=== PATIENT | female | born 1965 | race Caucasian/White ===

== ENCOUNTER 2017-08-06 21:14 | Emergency (ER) | payer OTHER ==
[~2017-08-06] VITALS: Ht 172.7 cm; Wt 72.6 kg
[2017-08-06 21:42] LABS: BASOPHILS ABSOLUTE AUTO 0.04 K/mm3 (0.00-0.23); BASOPHILS PERCENT AUTO 1 % (0-2); EOSINOPHILS PERCENT AUTO 2 % (0-6); Hematocrit 30.5 % (33.0-51.0); IMMATURE GRAN ABSOLUTE AUTO 0.02 K/mm3 (0.00-0.10); IMMATURE GRAN PERCENT AUTO 0 % (0-1); LYMPHOCYTES ABSOLUTE AUTO 2.05 K/mm3 (0.84-5.20); LYMPHOCYTES PERCENT AUTO 39 % (21-46); MONOCYTES ABSOLUTE AUTO 0.65 K/mm3 (0.16-1.47); MONOCYTES PERCENT AUTO 12 % (4-13); Mean Corpuscular HGB 30.8 pg (26.0-34.0); Mean Corpuscular HGB Conc 32.8 g/dL (31.5-36.5); Mean Corpuscular Volume 94 fL (80-100); Mean Platelet Volume 8.5 fL (9.1-12.4); NEUTROPHILS ABSOLUTE AUTO 2.47 K/mm3 (1.96-9.15); NEUTROPHILS PERCENT AUTO 46 % (41-73); Platelet Count 252 K/mm3 (150-400); RDW Coefficient Variation 13.2 % (11.7-14.2); RDW Standard Deviation 45.8 fL (35.1-46.3); Red Blood Cell Count 3.25 M/mm3 (3.80-5.20); White Blood Cell Count 5.33 K/mm3 (4.00-11.30)
[2017-08-06 21:44] LABS: Source, Urine Clean Catch
[2017-08-06 21:49] LABS: Appearance, Urine Hazy (Clear); Bilirubin, Urine Neg (Neg); Blood, Urine 1+ (Neg); Color, Urine Yellow (P-Yellow); Glucose Qualitative, Urine Neg (Neg); Ketones, Urine Neg (Neg); Leukocyte Esterase, Urine 3+ (Neg); Nitrite, Urine Neg (Neg); Protein, Urine Neg (Neg); Specific Gravity, Urine 1.005 (1.003-1.022); Urobilinogen, Urine NORM (Normal)
[2017-08-06 21:57] LABS: Bacteria Mod /hpf; Squamous Epithelial Cells Mod /hpf (Few); White Blood Cells, Urine 50-100 /hpf (0-5)
[2017-08-06 22:00] LABS: U Amphetamine Screen Not Detected; U Barbituate Screen Not Detected; U Benzodiazapine Screen Not Detected; U Buprenorphine Screen Not Detected; U Cannabinoids Screen Not Detected; U Cocaine Screen Not Detected; U Methadone Screen Not Detected; U Methamphetamine Screen Not Detected; U Opiates Screen Not Detected; U Oxycodone Screen Not Detected; U Phencyclidine Screen Not Detected; U Propoxyphene Screen Not Detected
[2017-08-06 22:02] LABS: Alanine Aminotransfer (ALT/SGP 18 U/L (12-78); Albumin/Globulin Ratio 1.2 (0.8-1.8); Alk Phos 71 U/L (50-136); Anion Gap 7 mmol/L (6-16); Aspartate Aminotrans (AST/SGOT 17 U/L (12-37); Bilirubin, Total 0.2 mg/dL (0.1-1.0); Blood Urea Nitrogen 8 mg/dL (8-24); CO2, Blood 27 mmol/L (21-32); Calcium, Blood 8.6 mg/dL (8.5-10.1); Chloride, Blood 107 mmol/L (98-108); Ethanol (Alcohol), Blood, Med <3 mg/dL; Globulin, Blood 3.3 g/dL (2.2-4.0); Glomerular Filtration Rate >60 (60-); Glucose, Blood 57 mg/dL (70-99); Potassium, Blood 3.8 mmol/L (3.5-5.5); Sodium, Blood 141 mmol/L (136-145); Total Protein, Blood 7.3 g/dL (6.4-8.2); Troponin I <0.015 ng/mL (0.000-0.040)
[2017-08-06] MEDS ORDERED: IBUP800 (22:41)
[2017-08-06] MEDS ORDERED: IBUP800 PO (22:42)
[2017-08-06] MEDS ORDERED: PARO10 PO (22:46)
[2017-08-06] MEDS ORDERED: GABA100 PO (22:46)
[2017-08-06] MEDS ORDERED: Hydroxyzine HCl50 MG PO (22:47)
[2017-08-06] MEDS ORDERED: CLON.2 PO (22:48)
[2017-08-06] MEDS ORDERED: Desyrel50 MG PO (23:20)
[2017-08-06] MEDS ORDERED: Bactrim Ds Tab1 EACH PO (23:20)
[2017-08-07] MEDS ORDERED: INDERAL XL120 MG PO ×2 (20:59→21:27)
== END 2017-08-06 23:39 | disposition home or self-care (01) ==
LOC: ER 21:14
PROVIDERS: Emergency Medicine
DX: F41.9 Anxiety disorder, unspecified (principal); F10.11 Alcohol abuse, in remission; Y90.0 Blood alcohol level of less than 20 mg/100 ml; N39.0 Urinary tract infection, site not specified; Z79.899 Other long term (current) drug therapy; Z79.2 Long term (current) use of antibiotics
CPT/HCPCS: 71046; 80053; 81001; 84484; 85025; 87086; 93005; 93010; 99283-25; G0480

== ENCOUNTER 2017-08-07 20:44 | Emergency (ER) | payer OTHER ==
[~2017-08-07] VITALS: Ht 157.5 cm; Wt 60.8 kg
[~2017-08-07 20:44] MED LIST: Bactrim Ds Tab1 EACH PO; CLON.2 PO; Desyrel50 MG PO; GABA100 PO; Hydroxyzine HCl50 MG PO; IBUP800; IBUP800 PO; PARO10 PO
[2017-08-07] MEDS ORDERED: INDERAL XL120 MG PO ×2 (20:59→21:27)
== END 2017-08-07 21:37 | disposition home or self-care (01) ==
LOC: ER 20:44
DX: F15.93 Other stimulant use, unspecified with withdrawal (principal); Z79.899 Other long term (current) drug therapy
CPT/HCPCS: 99283